=== PATIENT | female | born 1955 | race Caucasian/White ===

== ENCOUNTER 2019-04-03 08:44 | Emergency (ER) | payer OTHER ==
[~2019-04-03] VITALS: Ht 175.3 cm; Wt 71.8 kg
[2019-04-03] MEDS ORDERED: L.E.T SOLUTION TP ONE ×2 (09:11→09:30)
[2019-04-03] MEDS ORDERED: LIDOCAINE 1%-EPI 1:100K, 20ML ONE (09:11)
[2019-04-03] MEDS ORDERED: LOSA100T14 PO (09:25)
[2019-04-03] MEDS ORDERED: VALA500T PO (09:25)
[2019-04-03] MEDS ORDERED: LEVO50TA5 PO (09:25)
[2019-04-03] MEDS ORDERED: HYDR25TA6 PO (09:25)
[2019-04-03] MEDS ORDERED: L.AC1CAP6 PO (09:25)
[2019-04-03] MEDS ORDERED: POTA10TA6 PO (09:25)
[2019-04-03] MEDS ORDERED: BIOT10005 PO (09:25)
--- NOTE | 2019-04-03 09:25 | NUR ---
I AND D TRAY SET UP AT BEDSIDE. LET CREAM APPLIED PER EMAR AT 0915. PT RESTING ON LEFT SIDE. DEINIES NEEDS. CALL LIGHT IN REACH.
[2019-04-03] MEDS ORDERED: LIDOCAINE 1%-EPI 1:100K, 20ML SQ ONE (09:30)
--- NOTE | 2019-04-03 10:10 | NUR ---
AT BEDSIDE ADMINISTERING EPI AT THIS TIME.
[2019-04-03 10:33] VITALS: BP 117/66
== END 2019-04-03 10:53 | disposition home or self-care (01) ==
LOC: ED 10:47
DX: K64.5 Perianal venous thrombosis (principal)
CPT/HCPCS: 46083; 99284; J3490